=== PATIENT | female | born 1960 | race Caucasian/White ===

== ENCOUNTER 2018-03-27 10:46 | Outpatient (CLI) | payer BC ==
--- NOTE | 2018-03-27 11:34 | RAD ---
SEVEN VIEWS CERVICAL SPINE: Indication: Pain. FINDINGS: There is multilevel disc degenerative disease of the cervical spine, most pronounced at C5-6 and C6-7 . There is advanced facet osteoarthrosis of C3-4 through C5-6. There is mild anterior translation of C3 on C4 and C4 on C5 with flexion with reduction in extension position. Slight anterior translation seen at C3-4 on the neutral position spine. No acute fracture is evident. Lung apices appear clear. L ateral masses are symmetric. IMPRESSION: Moderate spondylosis of the cervical spine. There is mild abnormal translational motion seen at C3-4 and C4-5 with flexion with reduction in the extension position. Mild residual anterior translation of C3 on C4 is seen in the neutral spine position. POS: [facility]
--- NOTE | 2018-03-27 13:20 | RAD ---
LUMBAR SPINE 4 VIEWS: Date: 03/27/18 HISTORY: Low back pain. FINDINGS: Very small ribs at lowest thoracic level. Pedicles are intact. Mild S-shaped rotatory scoliotic curva ture on the frontal view. Vertebral body heights and AP alignment are maintained. Very little movemen t from flexion to extension without abnormal translational motion. Disc space narrowing at the L2-3 l evel where vertebral body osteophytosis was most pronounced. Prominent osteophytosis throughout the l ower facets. Calcification over the arterial structures. IMPRESSION: 1. Degenerative changes of the lumbar spine. No evidence of compression fracture. 2. Atherosclerosis. POS: [facility]
== END 2018-03-27 10:47 | disposition home or self-care (01) ==
LOC: BICRAD 10:46
PROVIDERS: ATTEND Physician Assistant Surgical
DX: M47.26 Other spondylosis with radiculopathy, lumbar region (principal); M50.30 Other cervical disc degeneration, unspecified cervical region; M48.02 Spinal stenosis, cervical region; I70.90 Unspecified atherosclerosis; M47.812 Spondylosis without myelopathy or radiculopathy, cervical region
CPT/HCPCS: 72050; 72120

== ENCOUNTER 2018-04-07 08:04 | Outpatient (CLI) | payer BC ==
--- NOTE | 2018-04-07 10:54 | MRI ---
MRI LUMBAR SPINE NONCONTRAST: INDICATIONS: Lumbar radiculopathy. FINDINGS: The conus medullaris is normal in morphology, terminating at the T12-L1 level. Mild disk osteophyte complex formation at the L1-L2, L2-L3, and L3-L4 levels without high grade centr al canal or foraminal stenosis. L4-L5: There is a right subarticular disk protrusion, which impinges the traversing right L5 nerve r oot. There is moderate stenosis of the right subarticular zone and right neural foramen, with extens ion of disk protrusion into the right foraminal and extraforaminal zone, as well. The left neural fo ramen is patent. L5-S1: No significant central canal or foraminal stenosis. IMPRESSION: Prominent right subarticular through right extraforaminal zone disk protrusion with impingement of th e right L5 nerve root, as well as moderate stenosis of the right subarticular zone and right neural f oramen. POS: [facility]
== END 2018-04-07 08:05 | disposition home or self-care (01) ==
LOC: BICMRI 08:04
PROVIDERS: ATTEND Physician Assistant Surgical
DX: M51.16 Intervertebral disc disorders with radiculopathy, lumbar region (principal); M54.5 Low back pain; M48.061 Spinal stenosis, lumbar region without neurogenic claudication
CPT/HCPCS: 72148

== ENCOUNTER 2018-06-09 09:18 | Outpatient (CLI) | payer OTHER ==
[2018-06-09 10:38] LABS: Hemoglobin 13.2 g/dL (12.0-16.0); Mean Corpuscular HGB CONC 32.3 g/dL (32.0-36.0); Mean Corpuscular Hemoglobin 32.1 pg (27.0-31.0); Mean Corpuscular Volume 99.4 fL (78.0-98.0); Platelet Count 249 thou/uL (130-400); RBC Distribution Width 12.1 % (11.5-14.5); Red Blood Cell (RBC) Count 4.11 mill/uL (4.20-5.40)
[2018-06-09 10:42] LABS: INR-International Normal Ratio 0.9; PTT 24.7 SEC (22.9-36.1); Prothrombin Time 12.3 SEC (12.0-14.7)
[2018-06-09 10:53] LABS: Anion Gap 15 mmol/L (10-20); BUN (Urea Nitrogen) 14 mg/dL (9.8-20.1); Calc. Creatinine Clearance 0 mL/min (70-130); Calcium 9.4 mg/dL (7.8-10.44); Carbon Dioxide 24 mmol/L (22-29); Chloride 106 mmol/L (98-107); Estimated GFR-MDRD 87; Glucose 96 mg/dL (70-105); Potassium 4.5 mmol/L (3.5-5.1); Sodium 140 mmol/L (136-145)
== END 2018-06-09 09:19 | disposition home or self-care (01) ==
LOC: LABBT 09:18
PROVIDERS: ATTEND Surgery
DX: Z01.818 Encounter for other preprocedural examination (principal)
CPT/HCPCS: 80048; 85027; 85610; 85730; 93005; 93010

== ENCOUNTER 2018-07-23 09:28 | Day surgery (SDC) | payer OTHER ==
[2018-07-23] MEDS ORDERED: Ondansetron PF 4 MG/2 ML Vial ONE (10:57)
[2018-07-23] MEDS ORDERED: Dexamethasone 20 MG/5 ML VIAL ONE (10:57)
[2018-07-23] MEDS ORDERED: Rocuronium Bromide 10 MG/ML (10ML VIAL) ONE (10:57)
[2018-07-23] MEDS ORDERED: Glycopyrrolate 0.2 MG/ML 5 ML SYRINGE ONE (10:57)
[2018-07-23] MEDS ORDERED: PROPOFOL 200 MG/20 ML VIAL ONE (10:57)
[2018-07-23] MEDS ORDERED: Lidocaine 1% PF 5 ML VIAL ONE (10:57)
[2018-07-23] MEDS ORDERED: Ketorolac Tromethamine 30 MG/ML VIAL ONE (10:57)
[2018-07-23] MEDS ORDERED: Scopolamine 1.5 mg/72 hour Patch ONE (11:32)
[2018-07-23] MEDS ORDERED: Fentanyl 100 MCG/2 ML VIAL ONE (12:54)
[2018-07-23] MEDS ORDERED: Propofol 500 MG/50 ML VIAL ONE (12:59)
[2018-07-23] MEDS ORDERED: Promethazine HCl 25 MG/ML VIAL IM PRN ×2 (14:24→14:55)
[2018-07-23] MEDS ORDERED: HYDROmorphone 2 MG/ML VIAL SLOW IVP PRN (14:24)
[2018-07-23] MEDS ORDERED: Promethazine HCl 25 MG/ML VIAL SLOW IVP PRN (14:24)
[2018-07-23] MEDS ORDERED: HYDROcodone/Acetaminophen 7.5/325 mg Tablet PO PRN (14:55)
[2018-07-23] MEDS ORDERED: Mag-Al 1200 mg/1200 mg/30 ML UDCUP PO PRN (14:55)
[2018-07-23] MEDS ORDERED: Morphine 4 MG/ML VIAL SLOW IVP PRN (14:55)
[2018-07-23] MEDS ORDERED: Acetaminophen 325 MG TAB PO PRN (14:55)
[2018-07-23] MEDS ORDERED: Bisacodyl 10 MG SUPP PR PRN (14:55)
[2018-07-23] MEDS ORDERED: Fleet Enema 133 ML BOT PR PRN (14:55)
[2018-07-23] MEDS ORDERED: Milk Of Magnesia 30 ML UDCUP PO PRN (14:55)
[2018-07-23] MEDS ORDERED: traMADol HCl 50 MG TAB PO PRN (14:55)
[2018-07-23] MEDS ORDERED: HYDROmorphone 2 MG/ML VIAL ONE (15:18)
[2018-07-23] MEDS: Sodium Chloride 0.9% 1,000 ML IV SCH ×2 (17:28→19:25)
[2018-07-23 17:29] VITALS: BMI 34.2
[2018-07-23] MEDS ORDERED: Nitroglycerin 0.4 MG TAB (25 Tab Bottle) SL PRN (18:56)
[2018-07-23] MEDS ORDERED: Pregabalin 75 MG CAP PO PRN (18:56)
[2018-07-23] MEDS ORDERED: Diazepam 5 MG TAB PO PRN (18:56)
[2018-07-23] MEDS ORDERED: TRIAZOLAM 0.25 MG PO PRN (18:56)
[2018-07-23] MEDS ORDERED: ALPRAZolam 0.25 MG TAB PO PRN (18:56)
[2018-07-23] MEDS: Cyclobenzaprine 10 MG TAB PO PRN (20:03)
[2018-07-23] MEDS ORDERED: Levothyroxine Sodium 125 MCG TAB PO SCH (21:00)
[2018-07-24] MEDS ORDERED: Vancomycin HCl 1 GM in Premix Bag 1 BAG IVPB SCH (08:00)
[2018-07-24] MEDS: Cyclobenzaprine 10 MG TAB PO PRN (08:27)
[2018-07-24] MEDS ORDERED: Losartan 25 MG TAB PO SCH (09:00)
[2018-07-24] MEDS ORDERED: COMPOUNDED HORMONES PO SCH (09:00)
[2018-07-24 11:46] VITALS: BP 128/73; TEMP 98.1
--- NOTE | 2018-07-24 13:01 | OP ---
DATE OF PROCEDURE: 07/23/2018 OPERATING ROOM: OR 12. WOUND CLASSIFICATION: Type 1 wound. CASING BUILDER: Al Gilmore PA-C. PREPROCEDURE DIAGNOSIS: C5-C6 radiculopathy with neck and right arm pain. POSTPROCEDURE DIAGNOSIS: C5-C6 radiculopathy with neck and right arm pain. PROCEDURES PERFORMED: 1. Anterior C5-C6 diskectomy for decompression of spinal cord and bilateral C6 nerve roots. 2. Preparation of endplates with placement of spacer packed with local bone autograft obtained from the same incision allograft C5-C6 for arthrodesis. 3. Anterior cervical plate and screw fixation C5-C6. 4. Use of operative microscope for microdissection. DESCRIPTION OF PROCEDURE: After informed consent was obtained from the patient, the patient was brought to the OR. Proper patient, pause, and identification were carried out. She was placed under excellent general endotracheal anesthesia and positioned supine on the OR table and the cervical spine prepared with a right anterior oblique tammie to allow for approach to the C5-C6 segment. This region was sterilely cleansed, prepared and draped. Proper patient, pause, and identification were carried out. The wound was then opened with a combination of sharp, monopolar, and blunt dissection. We proceeded lateral to the larynx, pharynx, tracheoesophageal bundle medial to the right carotid sheath. We identified the prevertebral layer of deep cervical fascia. We then came upon with retraction the longus colli muscles bilaterally in the C5-C6 segments. Distraction at C5-C6 then occurred and we brought the microscope in for microdissection. A C5-C6 diskectomy was performed. We then turned our attention to diskectomy and decompression of spinal cord and bilateral C6 nerve roots in preparation of the endplates. Interbody spacer packed local bone autograft obtained from the same incision. An allograft was placed at C5-C6 for arthrodesis. We then released the distraction and we then removed the microscope and anterior cervical plate and screw fixation C5-C6 then occurred. Final tightening occurred. Copious irrigation occurred throughout as did maximizing hemostasis. The wound was then closed in anatomic layers following placement of a drain and hemostasis. The patient then emerged from anesthesia. Job ID: [id number]
--- NOTE | 2018-07-24 17:18 | PRG ---
DATE OF SERVICE: 07/24/2018 Ms. Shultz is postoperative day #1 from C5-C6 ACDF. She has had resolution in her arm pain with good strength and minimal output from her drain. We will remove the drain. We went over both intra and postoperative issues and she will be dismissed. Job ID: [id number]
== END 2018-07-24 12:11 | disposition home or self-care (01) ==
LOC: SDC 09:28 → UNDOADMOB 16:22 → SURG B 16:22 → SDC 07-24 12:11 → UNDODISOB 07-24 12:11
PROVIDERS: ATTEND Surgery
PROC: 0RG10A0 Fusion of Cervical Vertebral Joint with Interbody Fusion Device, Anterior Approach, Anterior Column, Open Approach (ICD-10-PCS; principal; 2018-07-23)
DX: M54.12 Radiculopathy, cervical region (principal); Z91.09 Other allergy status, other than to drugs and biological substances; Z88.1 Allergy status to other antibiotic agents; Z88.5 Allergy status to narcotic agent; Z88.0 Allergy status to penicillin; Z88.2 Allergy status to sulfonamides; Z91.011 Allergy to milk products; Z91.018 Allergy to other foods; Z79.1 Long term (current) use of non-steroidal anti-inflammatories (NSAID); Z79.899 Other long term (current) drug therapy
CPT/HCPCS: 76000; C1713; C1768; C1776; J0131; J1100; J1170; J1885; J2001; J2405; J2704; J3010; J3370

== ENCOUNTER 2018-08-25 10:40 | Emergency (ER) | payer OTHER ==
--- NOTE | 2018-08-25 12:04 | RAD ---
Exam: Chest 2 views HISTORY:Chest pain Comparison: 11/15/2015 FINDINGS: Lungs: No masses or consolidation. Cardiac silhouette: Normal size Pulmonary vessels: Normal Pleural Spaces: Clear Pneumothorax: None Osseous abnormalities: None of acuity. IMPRESSION: No focal consolidation.
[2018-08-25 12:51] LABS: #Basophils 0.1 thou/uL (0.0-0.2); #Eosinphils 0.2 thou/uL (0.0-0.7); #Lymphocytes 1.9 thou/uL (1.20-3.40); #Monocytes 0.4 thou/uL (0.11-0.59); %Basophils 1.7 % (0.0-1.0); %Eosinophils 5.1 % (0.0-10.0); %Lymphocytes 41.6 % (21.0-51.0); %Monocytes 8.7 % (0.0-10.0); %Neutrophils 42.9 % (42.0-75.0); Mean Corpuscular HGB CONC 32.5 g/dL (32.0-36.0); Mean Corpuscular Hemoglobin 31.3 pg (27.0-31.0); Mean Corpuscular Volume 96.3 fL (78.0-98.0); Mean Platelet Volume 8.7 fL (7.4-10.4); Platelet Count 253 thou/uL (130-400); RBC Distribution Width 12.8 % (11.5-14.5); Red Blood Cell (RBC) Count 4.48 mill/uL (4.20-5.40); White Blood Cell (WBC) Count 4.6 thou/uL (4.8-10.8)
[2018-08-25 13:19] LABS: ALT (SGPT) 25 U/L (8-55); AST (SGOT) 21 U/L (5-34); Albumin 4.4 g/dL (3.5-5.0); Alkaline Phosphatase 117 U/L (40-150); Anion Gap 13 mmol/L (10-20); BUN (Urea Nitrogen) 15 mg/dL (9.8-20.1); Bilirubin, Total 0.3 mg/dL (0.2-1.2); CK (CPK) 48 U/L (29-168); Calc. Creatinine Clearance 0 mL/min (70-130); Carbon Dioxide 28 mmol/L (22-29); Chloride 106 mmol/L (98-107); Estimated GFR-MDRD 78; Globulin 2.9 g/dL (2.4-3.5); Glucose 95 mg/dL (70-105); Potassium 4.9 mmol/L (3.5-5.1); Protein, Total 7.3 g/dL (6.0-8.3); Sodium 142 mmol/L (136-145)
--- NOTE | 2018-08-29 14:18 | EKG ---
Test Reason : Blood Pressure : / mmHG Vent. Rate : 088 BPM Atrial Rate : 088 BPM P-R Int : 186 ms QRS Dur : 088 ms QT Int : 374 ms P-R-T Axes : 050 -22 014 degrees QTc Int : 452 ms Normal sinus rhythm Normal ECG Confirmed by ANABELA HUDSON DO ([id number]), editorial writer MARTIN KING ([id number] on 08/29/2018 2:17:57 PM Referred By: Confirmed By:ANABELA HUDSON DO
== END 2018-08-25 15:14 | disposition home or self-care (01) ==
LOC: ERS 10:40
DX: R07.89 Other chest pain (principal); F41.9 Anxiety disorder, unspecified; F32.9 Major depressive disorder, single episode, unspecified; E03.9 Hypothyroidism, unspecified; I10 Essential (primary) hypertension; K21.9 Gastro-esophageal reflux disease without esophagitis; Z87.891 Personal history of nicotine dependence; Z79.899 Other long term (current) drug therapy
CPT/HCPCS: 36415; 71046; 80053; 82550; 84484; 85025; 93005

== ENCOUNTER 2018-09-09 09:49 | Outpatient (CLI) | payer OTHER ==
--- NOTE | 2018-09-09 10:18 | RAD ---
EXAM: XR Cerv Sp Ap Lat STANDARD PROVIDED CLINICAL HISTORY: Neck pain COMPARISON: 03/27/2018 FINDINGS: There has been interval postsurgical changes related to anterior cervical fusion at the C5-6 level wi th anterior plate and screws transfixing this level. Intradiscal prosthesis is noted. No hardware complication is seen. C1 to the cervicothoracic junction is seen on the lateral view. There is trace anterolisthesis of C3 on C4 which was noted on the prior exam. No definite additional level of subluxation is seen. No fractures identified. The vertebral body heights are within normal limits. Th ere is straightening of the normal cervical lordotic curvature. The odontoid is mostly obscured on the odontoid view. However, the odontoid does demonstrate a normal appearance on lateral positioning. Facet degenerative changes are seen in the lower cervical spine. Prevertebral soft tissues are within normal limits. IMPRESSION: 1. Interval postsurgical changes related to anterior cervical fusion at the C5-6 level. 2. Stable trace anterolisthesis of C3 on C4.
== END 2018-09-09 09:50 | disposition home or self-care (01) ==
LOC: TBSIIMAG 09:49
PROVIDERS: ATTEND Surgery
DX: M50.10 Cervical disc disorder with radiculopathy, unspecified cervical region (principal); M43.12 Spondylolisthesis, cervical region; Z98.1 Arthrodesis status
CPT/HCPCS: 72040

== ENCOUNTER 2019-02-22 07:40 | Outpatient (CLI) | payer OTHER ==
--- NOTE | 2019-02-22 10:48 | MRI ---
MRI Lumbar Spine Noncontrast: HISTORY: Low back pain with pain rating down bilateral legs. COMPARISON: 04/07/2018. FINDINGS: The visualized retroperitoneal structures demonstrate a normal appearance. Conus medullaris is normal in morphology and terminates at the T12-L1 level. Scattered mild endplate degenerative changes are seen, but normal signal intensity is otherwise demon strated in the bone marrow. L1-2: Minimal broad-based disc bulge is present. There is no significant narrowing of the central spi nal canal, and the neural foramina are patent. L2-3: Again noted is mild loss of intervertebral disc height. There is mild broad-based disc osteophy te complex which does result in slight flattening of the anterior aspect of the thecal sac. Neural foramina are patent. Findings are stable when compared to prior exam. L3-4: There is a mild broad-based disc bulge present. Central spinal canal and neural foramina are pa tent. There is only minimal encroachment on the right neural foramen. L4-5: There is a broad-based disc osteophyte complex with a right paracentral broad-based disc protru elmer. This does appear to contact the L4 nerve root within the neural foramen with [id number] right-sided neural foraminal narrowing present. There has been improvement in the previously seen lar prieto subarticular component of the disc protrusion which resulted in mass effect on the traversing right L5 nerve root. The left neural foramen at this level is patent. L5-S1: There is a mild disc osteophyte complex, the central spinal canal is patent. There is mild lef t-sided neural foraminal narrowing. The right neural foramen is patent. IMPRESSION: Disc degenerative changes throughout the lumbar spine greatest at the L4-5 level where there is a bro ad-based right paracentral/foraminal disc protrusion which does contact the right L4 nerve root within the neural foramen and results in [id number] right-sided neural foraminal narrowing. The larger subarticular component of the disc protrusion on the right has improved which previously resulted in mass effect and flattening of the traversing right L5 nerve root. There is now only minim al encroachment on the traversing right L5 nerve root.
--- NOTE | 2019-02-22 11:55 | MRI ---
MRI THORACIC SPINE WITHOUT CONTRAST: INDICATION: Thoracic radiculopathy. FINDINGS: Thoracic vertebrae maintain normal height and alignment. There is mild loss of disk space in the upp er midthoracic spine with loss of T2 hydration. The disk spaces below T7 are maintained with normal hydration. There is no evidence of significant disk bulge or disk protrusion in any of the visualize d thoracic levels. There is no evidence of central canal stenosis. Thoracic cord signal is normal. IMPRESSION: Unremarkable MRI of thoracic spine. POS: [facility]
== END 2019-02-22 07:41 | disposition home or self-care (01) ==
LOC: TBSIIMAG 07:40
PROVIDERS: ATTEND Surgery
DX: M47.26 Other spondylosis with radiculopathy, lumbar region (principal); M51.26 Other intervertebral disc displacement, lumbar region; M54.14 Radiculopathy, thoracic region; M54.5 Low back pain; M51.16 Intervertebral disc disorders with radiculopathy, lumbar region
CPT/HCPCS: 72146; 72148